=== PATIENT | male | born 1975 | race Caucasian/White ===

== ENCOUNTER 2020-05-06 13:32 | Outpatient (REF) | payer OTHER, SELFPAY | END 2020-05-06 13:33 | disposition home or self-care (01) | LOC: HO.LAB 13:32 | PROVIDERS: Visit Provider Internal Medicine | DX: Z20.828 Contact with and (suspected) exposure to other viral communicable diseases (principal) | CPT/HCPCS: C9803; U0003 ==

== ENCOUNTER 2021-08-28 22:18 | Emergency (ER) | payer OTHER, MEDICAID, SELFPAY ==
--- NOTE | ~2021-08-28 | XR_ITS ---
EXAMINATION: XR CHEST CLINICAL INFORMATION: Cough COMPARISON: None TECHNIQUE: 2 views of the chest were obtained. FINDINGS: No significant abnormality is noted involving the heart, lungs, mediastinum, bony thorax or soft tissues. XR/XR chest 2V IMPRESSION: Unremarkable examination.
--- NOTE | 2021-08-29 | ECG_ITS ---
Test Reason : CHEST TIGHTNESS Blood Pressure : / mmHG Vent. Rate : 082 BPM Atrial Rate : 082 BPM P-R Int : 134 ms QRS Dur : 082 ms QT Int : 394 ms P-R-T Axes : 032 019 025 degrees QTc Int : 460 ms Normal sinus rhythm Normal ECG No previous ECGs available Referred By: Generic ED Physician Electronically Signed By:CHRISTIE POLLACK
[2021-08-29 00:22] VITALS: BP 164/99; PULSE 99; RESP 18; TEMP 36.3; O2SAT 98; BMI 28.9
[2021-08-29 03:51] VITALS: BP 138/98; PULSE 95; RESP 18; TEMP 36.5; O2SAT 97
--- NOTE | 2021-08-29 04:58 | ED.ANXIETY ---
HPI - Anxiety General Chief Complaint: Anxiety Stated Complaint: ?Anxiety Time Seen by Provider: 08/29/21 04:56 Source: patient and other Mode of arrival: ambulatory History of Present Illness HPI narrative: 46-year-old male without significant past medical history other than occasional alcohol drinking an everyday smoker who lost his job approximately 6 weeks ago and over the past 2 weeks has had increasing feelings anxiety, that he characterizes as difficulty sleeping at night, decreased appetite, increased weight gain, loss of energy and otherwise denies any polydipsia/polyuria/unexplained weight loss and has not seen a primary care provider ever. Related Data Previous Rx's Medication Instructions Recorded hydroxyzine HCl 25 mg tablet 25 mg PO QID PRN #20 tab 08/29/21 Allergies Allergy/AdvReac Type Severity Reaction Status Date / Time Codeine Sulfate Allergy Unknown hives when Uncoded 06/29/21 16:47 a kid Review of Systems Review of Systems: Pertinent positives and negatives as stated in HPI 10 point review of systems is otherwise negative. PMFSH Past Medical History Source: nursing notes reviewed Medical History Anxiety Social History Social History Advance Directives: No Advance Directives Information Provided: Yes Physical Exam Vital Signs: Vital Signs: Last Vital Signs Temp 97.9 F 08/29/21 05:32 Pulse 96 08/29/21 05:32 Resp 16 08/29/21 05:32 BP 121/89 08/29/21 05:32 Pulse Ox 96 08/29/21 05:32 BMI result Body Mass Index 28.9 VITAL SIGNS: Reviewed. GENERAL: Well developed, well nourished, in no acute distress. HEAD: Normocephalic/atraumatic EYES: PERRLA, EOMI intact without pain, no nystagmus EARS: Ext canals without abnormality, TMs non-bulging and non-erythematous NOSE: Nares patent bilateral OROPHARYNX: no oral lesions noted, posterior pharynx clear and non-erythematous without noted tonsillar enlargement/erythema/exudates NECK: Supple, no adenopathy LUNGS: Normal breath sounds, no expiratory wheeze/rhonchi/rales, no tachypnea. SpO2<97> CARDIOVASCULAR: Regular rate and rhythm without noted murmurs, no JVD or bilateral 1+ pitting edema at the ankles ABDOMEN: Soft, non-tender, non-distended with bowel sounds. MUSCULOSKELETAL: No tenderness, deformities, or effusions noted on gross inspection. EXTREMITIES: No cyanosis, clubbing or edema. SKIN: Inspection of the skin reveals no rashes, ulcerations, jaundice, pallor, or petechiae. NEUROLOGIC: Alert and oriented x 4. Strength and sensation to light touch were grossly intact x 4. PSYCH: Depressed affect, anxious Course Course Course Narrative: 46-year-old male with history and clinical presentation consistent with somewhat recent job loss and suspect that patient is experiencing depression as well as anxiety related to current employment status. Will evaluate for underlying medical abnormalities and otherwise provide outpatient resources. Patient states that he recently got on [employer] and has already pursued setting a primary care provider. Review of all investigations negative for acute findings. Patient was provided with hydroxyzine as well as 0.5 mg of Klonopin while here in the emergency room with mild improvement in anxiety symptoms. All results discussed with him and his mother at the bedside. He is otherwise discharged home in stable condition without suicidal or homicidal ideation and will follow-up with a primary care provider on Tuesday. MDM - Anxiety Lab Data Result diagrams: 08/29/21 05:29 08/29/21 05:29 Labs: Lab Results 08/29/21 08/29/21 08/29/21 Range/Units 05:29 05:29 05:29 WBC 6.8 (4.8-10.8) X10*3/uL RBC 5.15 (4.60-5.80) X10*6/uL Hgb 16.0 (14.0-18.0) g/dl Hct 47.0 (42.0-52.0) % MCV 91.3 (80.0-98.0) fL MCH 31.1 (27.0-33.0) pg MCHC 34.0 (31.0-36.0) g/dl RDW 12.7 (11.0-16.0) % Plt Count 208 (160-400) X10*3/uL MPV 11.0 (9.4-12.4) fL Immature Gran % (Auto) 0.4 (0.0-0.4) % Neut % (Auto) 63.0 (45-73) % Lymph % (Auto) 23.1 (20-40) % Granite % (Auto) 10.2 (2-11) % Eos % (Auto) 2.9 (0-4) % Baso % (Auto) 0.4 (0-2) % Lymph # (Auto) 1.6 (1.2-4.9) X10*3/uL Granite # (Auto) 0.7 (0.1-1.2) X10*3/uL Eos # (Auto) 0.2 (0.0-0.4) X10*3/uL Baso # (Auto) 0.0 (0.0-0.2) X10*3/uL Abs Immat Gran (auto) 0.03 (0.00-0.03) X10*3/uL Absolute Neuts (auto) 4.3 (2.0-8.3) x10*3/uL Absolute Nucleated RBC 0.000 (0.0-0.012) X10*3/uL Nucleated RBC % (auto) 0.0 (0.0-0.2) /100WBC Sodium 138 (135-145) mmol/L Potassium 4.0 (3.3-5.1) mmol/L Chloride 102 (96-108) mmol/L Carbon Dioxide 28 (22-29) mmol/L Anion Gap 12 (12-20) BUN 19 H (9-16) mg/dL Creatinine 0.79 (0.5-1.4) mg/dL Estim Creat Clear Calc 130.2 Estimated GFR > 60 Random Glucose 117 H (60-115) mg/dL Calcium 10.4 H (8.4-10.2) mg/dL Total Bilirubin 0.4 (0.0-1.0) mg/dL AST 26 (5-37) U/L ALT 44 H (0-40) U/L Alkaline Phosphatase 87 (39-117) U/L B-Natriuretic Peptide < 10 (<100) pg/mL Total Protein 8.0 (6.5-8.0) g/dL Albumin 4.9 (3.5-5.0) g/dL Ethyl Alcohol mg/dL 08/29/21 Range/Units 05:29 WBC (4.8-10.8) X10*3/uL RBC (4.60-5.80) X10*6/uL Hgb (14.0-18.0) g/dl Hct (42.0-52.0) % MCV (80.0-98.0) fL MCH (27.0-33.0) pg MCHC (31.0-36.0) g/dl RDW (11.0-16.0) % Plt Count (160-400) X10*3/uL MPV (9.4-12.4) fL Immature Gran % (Auto) (0.0-0.4) % Neut % (Auto) (45-73) % Lymph % (Auto) (20-40) % Granite % (Auto) (2-11) % Eos % (Auto) (0-4) % Baso % (Auto) (0-2) % Lymph # (Auto) (1.2-4.9) X10*3/uL Granite # (Auto) (0.1-1.2) X10*3/uL Eos # (Auto) (0.0-0.4) X10*3/uL Baso # (Auto) (0.0-0.2) X10*3/uL Abs Immat Gran (auto) (0.00-0.03) X10*3/uL Absolute Neuts (auto) (2.0-8.3) x10*3/uL Absolute Nucleated RBC (0.0-0.012) X10*3/uL Nucleated RBC % (auto) (0.0-0.2) /100WBC Sodium (135-145) mmol/L Potassium (3.3-5.1) mmol/L Chloride (96-108) mmol/L Carbon Dioxide (22-29) mmol/L Anion Gap (12-20) BUN (9-16) mg/dL Creatinine (0.5-1.4) mg/dL Estim Creat Clear Calc Estimated GFR Random Glucose (60-115) mg/dL Calcium (8.4-10.2) mg/dL Total Bilirubin (0.0-1.0) mg/dL AST (5-37) U/L ALT (0-40) U/L Alkaline Phosphatase (39-117) U/L B-Natriuretic Peptide (<100) pg/mL Total Protein (6.5-8.0) g/dL Albumin (3.5-5.0) g/dL Ethyl Alcohol < 10 mg/dL ECG Data Attestation: I personally reviewed and interpreted this ECG as follows: Prior ECG tracings: not available for review Interpretation: NSR, HR-82, no STEMI, IA/QRS/QTC are within normal limits. Discharge Plan Discharge Clinical Impression: Acute anxiety, Depression Patient Disposition: Home, Self-Care Instructions: Depression (ED), Anxiety (ED) Additional Instructions: Follow-up with a primary care provider on Tuesday morning for re-evaluation further outpatient management. Please review the provided information regarding sleep hygiene. Do not hesitate to return to the emergency room should you experience any acute worsening of symptoms. Prescriptions: New hydroxyzine HCl 25 mg tablet 25 mg PO QID PRN (Reason: anxiety) Qty: 20 0RF
[2021-08-29] MEDS: hydrOXYzine HCL 50 MG TABLET PO (05:04)
[2021-08-29 05:32] VITALS: BP 121/89; PULSE 96; RESP 16; TEMP 36.6; O2SAT 96
[2021-08-29 05:34] LABS: Basophils Percent Auto 0.4 % (0-2); Eosinophils Absolute Auto 0.2 X10*3/uL (0.0-0.4); Eosinophils Percent Auto 2.9 % (0-4); Imm Gran Abs Auto 0.03 X10*3/uL (0.00-0.03); Imm Gran Pct Auto 0.4 % (0.0-0.4); Lymphocytes Absolute Auto 1.6 X10*3/uL (1.2-4.9); Lymphocytes Percent Auto 23.1 % (20-40); MANUAL DIFF FLAG NO; Mean Corpuscular Hemoglobin 31.1 pg (27.0-33.0); Mean Corpuscular Volume 91.3 fL (80.0-98.0); Monocytes Absolute Auto 0.7 X10*3/uL (0.1-1.2); Monocytes Percent Auto 10.2 % (2-11); Neutrophils Absolute Auto 4.3 x10*3/uL (2.0-8.3); Platelet Count 208 X10*3/uL (160-400); Red Blood Count 5.15 X10*6/uL (4.60-5.80); Red Cell Distribution Width 12.7 % (11.0-16.0); White Blood Count 6.8 X10*3/uL (4.8-10.8)
[2021-08-29 05:48] LABS: Ethanol < 10 mg/dL
[2021-08-29 05:51] LABS: Alanine Aminotransferase 44 U/L (0-40); Albumin Level 4.9 g/dL (3.5-5.0); Alkaline Phosphatase 87 U/L (39-117); Anion Gap 12 (12-20); Aspartate Amino Transferase 26 U/L (5-37); Bilirubin Total 0.4 mg/dL (0.0-1.0); Blood Urea Nitrogen 19 mg/dL (9-16); Calcium 10.4 mg/dL (8.4-10.2); Carbon Dioxide 28 mmol/L (22-29); Chloride 102 mmol/L (96-108); Creatinine Clr Calc Pharmacy 130.2; Estimated Glomerular Filt Rate > 60; Glucose Random 117 mg/dL (60-115); Sodium 138 mmol/L (135-145)
[2021-08-29 05:55] LABS: B Type Natriuretic Peptide < 10 pg/mL (<100)
[2021-08-29] MEDS: clonazePAM 0.5 MG TABLET PO (06:27)
== END 2021-08-29 07:06 | disposition home or self-care (01) ==
PROVIDERS: Emergency Provider Student in an Organized Health Care Education/Training Program
DX: F41.9 Anxiety disorder, unspecified (principal); F32.A Depression, unspecified; R60.0 Localized edema; Z72.89 Other problems related to lifestyle; Z56.0 Unemployment, unspecified
CPT/HCPCS: 36415; 71046; 80053; 82077; 83880; 85025; 93005; 99283; 99284

== ENCOUNTER 2022-11-13 17:09 | Emergency (ER) | payer OTHER, SELFPAY ==
[2022-11-13 17:11] VITALS: BP 175/92; PULSE 108; RESP 16; TEMP 36.4; O2SAT 95; BMI 26.6
--- NOTE | 2022-11-13 17:39 | ED_ITS ---
HPI - General Adult General Chief complaint: General Medical Stated complaint: bit by a tick Time Seen by Provider: 11/13/22 17:20 Source: patient Mode of arrival: ambulatory Limitations: no limitations History of Present Illness HPI narrative: 47-year-old male with history of hypertension presents the ER with complaints of left thigh redness, swelling for 2 weeks. Patient reports two weeks ago he pulled a large tick off his left thigh. He believes he got the whole thing when he removed it. Since then he has had increasing redness and swelling to the area. No fevers, chills, body aches, joint pain. Related Data Previous Rx's Medication Instructions Recorded hydroxyzine HCl 25 mg tablet 25 mg PO QID PRN anxiety #20 tabs 08/29/21 hydroxyzine HCl 50 mg tablet 50 mg PO TID PRN anxiety #30 tabs 08/29/21 cephalexin 500 mg capsule 500 mg PO TID #21 caps 11/13/22 doxycycline monohydrate 100 mg 100 mg PO BID #28 caps 11/13/22 capsule Allergies Allergy/AdvReac Type Severity Reaction Status Date / Time Codeine Sulfate Allergy Unknown hives when Uncoded 06/29/21 16:47 a kid Review of Systems Review of Systems: Yes all other systems are reviewed and are negative Constitutional: Constitutional: Reports no additional constitutional complaints, Denies body ache(s), Denies chills, Denies fever(s), Denies headache(s) and Denies weakness Eyes: Eyes: Reports no additional eye complaints and Denies change in vision ENT: Reports system reviewed and no additional complaints, except as documented, Denies dizziness, Denies headache(s), Denies nasal congestion, Denies nasal discharge and Denies neck pain Cardiovascular: Cardiovascular: Reports no additional cardiovascular complaints, Denies chest pain, Denies leg edema and Denies dyspnea Respiratory: Respiratory: Reports no additional respiratory complaints, Denies cough and Denies dyspnea Gastrointestinal: Gastrointestinal: Reports no additional gastrointestinal co mplaints, Denies abdominal pain, Denies diarrhea, Denies nausea and Denies vomiting Genitourinary: Genitourinary: Denies urinary incontinence Musculoskeletal: Musculoskeletal: Reports no additional musculoskeletal complaints, Denies back pain, Denies arthralgias, Denies joint swelling, Denies neck pain, Denies numbness and Denies tingling Integumentary/Breasts: Skin/Breast: Reports system reviewed and no additional complaints, except as docu, Reports swelling, Reports erythema and Denies rash Neurologic: Reports system reviewed and no additional complaints, except as documented, Denies dizziness, Denies headache(s), Denies numbness, Denies tingling and Denies weakness COUNTS INCLUDE 234 BEDS AT THE [facility] Past Medical History Attestation statement: The following information was validated with the patient. Source: old records reviewed and nursing notes reviewed Medical History Anxiety Social History Social History Advance Directives: No Advance Directives Information Provided: No Physical Exam ED Vital Signs: Vital Signs - 24 hr 11/13/22 17:11 Temperature 97.5 F Pulse Rate 108 H Respiratory Rate 16 Blood Pressure 175/92 H Pulse Oximetry 95 BMI result Body Mass Index 26.6 Const General: cooperative, healthy appearing, comfortable and no acute distress Orientation/consciousness: patient oriented x3 Limitations: no limitations HENMT Head: Yes normal to inspection Ears: hearing grossly normal bilaterally Eyes General: appearance normal, both eyes and all related structures Pupils: Equal, round and reactive pupils present Neck Neck: Yes normal visual inspection, Yes full ROM, Yes no lymphadenopathy and Yes no meningeal signs Chest Chest palpation & inspection: normal inspection of the chest Resp Effort & Inspection: normal respiratory effort Auscultation: clear to auscultation bilaterally Cardio Rate: regular rate Rhythm: regular rhythm Peripheral pulses: Peripheral pulses 2+ throughout GI Inspection: Yes normal to inspection Palpation (GI): Soft to palpation and nontender General: Yes no CVA tenderness Back/Spine/Pelvis Back: no CVA tenderness Thoracic/Lumbar Spine: thoracic and lumbar spine normal to inspection Neuro General: patient oriented x3, moves all extremities and no meningeal signs Cranial nerves: Yes Equal, round and reactive pupils present Cognition (Neuro): normal cognition Gait exam (Neuro): Normal gait present Extrem Other: I explored the central site and do not visualize any tick or fb. The site is indurated with no fluctuance. No abscess. Not circumferential. Compartments soft. Medical Decision Making Medical Decision Making MDM Narrative: 47-year-old male with history of hypertension presents the ER with complaints of left thigh redness, swelling for 2 weeks. Patient reports two weeks ago he pulled a large tick off his left thigh. He believes he got the whole thing when he removed it. Since then he has had increasing redness and swelling to the area. No fevers, chills, body aches, joint pain. On exam patient has left thigh redness and swelling with a central site. It is not circumferential. There is induration with no abscess or fluctuance noted. It has soft compartments. Will send testing for tick-borne illnesses Patient will be treated with course of doxycycline and cephalexin. I did recommend the patient take pictures of the ER on his phone and return for any worsening signs or symptoms. Differential Diagnosis Differential Diagnoses: The differential diagnosis associated with the presentation includes cellulitis, lyme disease low concern compartment syndrome, nec fasc Discharge Plan Discharge Clinical Impression: Cellulitis Patient Disposition: Home, Self-Care Instructions: Cellulitis (DC), Warm Compress or Soak (ED) Additional Instructions: Test results take 5-7 days. Will call you if they are positive Alternate Motrin and Tylenol for pain as needed Please return for any increasing swelling, redness, pain. Prescriptions: New cephalexin 500 mg capsule 500 mg PO TID Qty: 21 0RF doxycycline monohydrate 100 mg capsule 100 mg PO BID Qty: 28 0RF No Action hydroxyzine HCl 25 mg tablet 25 mg PO QID PRN (Reason: anxiety) Qty: 20 0RF hydroxyzine HCl 50 mg tablet 50 mg PO TID PRN (Reason: anxiety) Qty: 30 0RF Referrals: Physician,Unknown J [Primary Care Provider] - 1 week Interventions: ED Discharge Assessment Last Done: 11/13/22 18:02 Discharge Date/Time: 11/13/22 18:02
[2022-11-16 02:43] LABS: Lyme Abs Screen <0.90 index
[2022-11-22 12:09] LABS: A. Phagocytophilum Ab IgG <1:64 (<1:64); A. Phagocytophilum Ab IgM <1:20 (<1:20); E. Chaffeensis Ab IgG <1:64 (<1:64); E. Chaffeensis Ab IgM <1:20 (<1:20)
[2022-11-22 16:54] LABS: Babesia IgG <1:64 titer (<1:64); Babesia IgM <1:20 titer (<1:20)
== END 2022-11-13 18:02 | disposition home or self-care (01) ==
PROVIDERS: Nurse Practitioner Family; Emergency Provider Emergency Medicine
DX: S70.362A Insect bite (nonvenomous), left thigh, initial encounter (principal); W57.XXXA Bitten or stung by nonvenomous insect and other nonvenomous arthropods, initial encounter; Y93.9 Activity, unspecified; Y92.9 Unspecified place or not applicable; Y99.9 Unspecified external cause status
CPT/HCPCS: 36415; 86617; 86618; 86666; 86753; 99282; 99283